=== PATIENT | female | born 1960 | race Caucasian/White ===

== ENCOUNTER → 2017-12-07 | Outpatient (CLI) | payer OTHER ==
[~2017-12-07] MED LIST: ALB18R INH; CALC-852 PO; CHOL100058 PO; CHOL400T55 PO; CLOB15OI16 TP; DULO60CA51 PO; ESTR42.5 PV; EXEN10PE6 SQ; EXEN5PEN SQ; GLUC100026 PO; LACT1CAP6 PO; LEVO75TA68 PO; LEVO88TA43 PO; LUTE20CA11 PO; MULT1TAB64 PO; OMEG-11 PO; PRAS25CA7 PO; PREG25PO9 PO; SERT-1 PO; VITA-197 PO; [UNRECOGNIZED DRUG - CODE] ASDIRECTED; [UNRECOGNIZED DRUG - CODE] PO; [UNRECOGNIZED DRUG - CODE] SQ
--- NOTE | 2017-12-08 13:48 | RADIOLOGY IMAGING REPORT ---
FACILITY: [facility] - [place] PATIENT NAME: MAISHA GALLOWAY : [id number] MR: [id number] V: [id number] EXAM DATE: ORDERING PHYSICIAN: MIKAL REDDING TECHNOLOGIST: Concepción Meneses PROCEDURE:BILATERAL DIGITAL SCREENING MAMMOGRAM WITH CAD ASSISTED INTERPRETATION & 3D TOMOSYNTHESIS COMPARISON:09/17/15 & priors dating back to 06/13/11 INDICATIONS:SCREENING FINDINGS: Breasts have scattered fibroglandular densities. There is a stable asymmetry in the posterior upper outer aspect of the left breast. There are no mammographic findings concerning for malignancy. There is no significant interval change. DIAGNOSTIC CATEGORY 1--NEGATIVE. RECOMMENDATIONS: ROUTINE MAMMOGRAM AND CLINICAL EVALUATION IN 1 YR. IMPRESSION: BIRADS 1: Negative. Dictated by: Clovis Mueller on 12/08/2017 at 8:58 Transcribed by: DUKE on 12/08/2017 at 11:33 Approved by: Clovis Mueller on 12/08/2017 at 13:46 [facility]
== END ==
LOC: MAMO 00:46
PROVIDERS: ATTEND Obstetrics & Gynecology
DX: Z12.31 Encounter for screening mammogram for malignant neoplasm of breast (principal)
CPT/HCPCS: 77063; 77067

== ENCOUNTER 2018-07-04 00:29 | Day surgery (SDC) | payer OTHER ==
[2018-07-04] VITALS (8 sets, daily range): BP systolic 89–130; BP diastolic 59–73
[~2018-07-04] VITALS: Ht 167.6 cm; Wt 81.6 kg
[2018-07-04] MEDS ORDERED: PROPOFOL EMUL(*) 10MG/ML 20 ML 20 ML ONE (07:07)
[2018-07-04] MEDS ORDERED: LIDOCAINE/SOD BICARB 8.4% SYR ONE (07:08)
[2018-07-04] MEDS ORDERED: LIDOCAINE/SOD BICARB 8.4% SYR ID ONE (07:50)
[2018-07-04] MEDS ORDERED: NORMOSOL R SOLN(*) 1000 ML BAG 1,000 ML IV PRN (07:50)
--- NOTE | 2018-07-04 09:04 | Short(Outpt) Discharge Summary ---
Discharge Summary Reason for Hosp/Final Diag: (1) Colon cancer screening Status: Chronic Hospital Course & Plan: Colonoscopy completed without problems; normal. Departure Discharge to: Home, Self Care Discharge Instructions Home Meds Active Scripts Levothyroxine Sodium (SYNTHROID) 88 Mcg Tablet, 1 TAB PO QDAY, #90 TAB 1 Refill Prov:JULIO CESAR ZAVALA MD 05/03/18 [place], Insulin Disposable (Bd Ultra-Fine Pen Needle) 1 Each Dis.needle, EACH SQ BID, #200 3 Refills Prov:JULIO CESAR ZAVALA MD 02/27/18 Exenatide (BYETTA) 10 Mcg/0.04 Ml Pen.injctr, 10 MCG SQ BID, #60 SYR 5 Refills Prov:JULIO CESAR ZAVALA MD 02/20/18 Reported Medications Flaxton-3 Fatty Acids/Fish Oil (FISH OIL 1,000 MG CAPSULE) 1 Each Capsule, 2 CAP PO QDAY, CAPSULE 08/01/17 Cholecalciferol (Vitamin D3) (VITAMIN D) 1,000 Unit Capsule, 1 CAP PO QDAY, CAPSULE 08/01/17 Clobetasol Propionate (CLOBETASOL PROPIONATE) 15 Gm Oint...g., 1 DESHAWN TP 2XW, TUBE 08/01/17 Vitamin E Mixed (VITAMIN E) 400 Unit Capsule, 1 CAP PO QDAY, CAPSULE 08/01/17 Estrogens, Conjugated (Premarin) 0.625 Mg/Gram Cream.appl, 0.5 GM PV 2XW 08/01/17 Multivitamin (MULTI VITAMIN DAILY) 1 Each Tablet, 1 TAB PO QDAY, TAB 08/01/17 Lutein (LUTEIN) 20 Mg Capsule, 1 CAP PO QDAY, CAPSULE 08/01/17 Glucosamine Sulfate 2KCL (GLUCOSAMINE) 1,000 Mg Tablet, 2 TAB PO QDAY 08/01/17 Calcium Carbonate/Vitamin D3 (CALCIUM + VITAMIN D TABLET) 1 Each Tablet, 1 TAB PO QDAY 08/01/17 Discontinued Scripts Sertraline Hcl (ZOLOFT) 50 Mg Tablet, 1 TAB PO QDAY, #90 TAB 3 Refills Prov:JULIO CESAR ZAVALA MD 11/22/17 Diet: Regular Activity: As Tolerated Special Instructions: Your colonoscopy was completed without any problems and your prep was excellent (Good Job!!). I didn't find any polyps, cancers, or other problems; it was completely normal. I recommend that you have another colonoscopy in 10 years. ALBAN NATHAN MD Jul 04, 2018 09:04
== END 2018-07-04 10:30 | disposition home or self-care (01) ==
LOC: OR 00:29
PROVIDERS: ATTEND Surgery
DX: Z12.11 Encounter for screening for malignant neoplasm of colon (principal); E66.9 Obesity, unspecified; K21.9 Gastro-esophageal reflux disease without esophagitis
CPT/HCPCS: 00812; 36416; 45378; 82948; J2704

== ENCOUNTER → 2019-01-18 | Outpatient (CLI) | payer OTHER ==
--- NOTE | 2019-01-18 11:52 | RADIOLOGY IMAGING REPORT ---
FACILITY: PATIENT NAME: Zandra Chambers : 1960 MR: [id number] V: [id number] EXAM DATE: ORDERING PHYSICIAN: JULIO CESAR ZAVALA TECHNOLOGIST: Location: [facility] - [place] Patient: Zandra Chambers : 1960 Visit/Account:[id number] Date of Sevice: 01/18/2019 DEXA Scan Clinical history: Osteoporosis screening. Comparison: 03/09/2009. LUMBAR SPINE: Bone mineral density (BMD) measured in the lumbar spine correlates with a T-score of -0.8 and a Z-sco re of -0.1 which is normal as defined by the World Health Organization. The corresponding risk of f racture in the lumbar spine is not increased compared with a young adult reference population. Lumb ar spine bone density has increased by 5.2% compared to previous. Note that degenerative changes may falsely increase bone density. LEFT FEMORAL NECK: Bone mineral density (BMD) measured in the femoral neck correlates with a T-score of -1.2 and a Z-sco re of -0.3 which is osteopenia as defined by the World Health Organization. Bone mineral density (BMD) measured in the femoral neck region is 0.866 g/cm2. LEFT TOTAL HIP: Total hip bone mineral density (BMD) correlates with a T-score of -0.7 and a Z-score of -0.2 which is normal as defined by the World Health Organization. Total hip bone density has decreased by less th an 1% compared to previous. The corresponding risk of fracture in the hip is increased compared with a young adult reference popu [facility]. IMPRESSION: 1. Lumbar spine: Normal bone density. Lumbar spine bone density has increased by 5.2% compared to previous. 2. Left femoral neck: Osteopenia. 3. Left femoral neck: Bone Mineral Density is 0.866 g/cm2. 4. Left total hip: Normal bone density. Total hip bone density has decreased by less than 1% martin red to previous. FRAX WHO Fracture Risk Assessment Tool link: <http://www.shef.ac.uk/FRAX/tool.jsp?locationValue=9> PLEASE NOTE: 1) The World Health Organization defines low BMD as follows: T-score Normal > -1 Osteopenia < -1 and > -2.5 Osteoporosis < -2.5 without fractures Established osteoporosis < -2.5 with fractures 2) In general, you may wish to consider: Diagnosis Treatment Follow-up DEXA Normal BMD Prevention 2-3 years Osteopenia Prevention/therapy 1-2 years Osteoporosis Therapy Yearly 3) Fracture risk estimated from the T-score is more accurate for vertebral fractures (often spontane ous) than for hip fractures. Report Dictated By: Hoang Jensen MD at 01/18/2019 11:44 AM Report E-Signed By: Hoang Jensen MD at 01/18/2019 11:48 AM WSN:DEON
--- NOTE | 2019-01-22 12:51 | RADIOLOGY IMAGING REPORT ---
[place] [facility] [place] MAISHA GALLOWAY : [id number] MR: [id number] V: [id number] EXAM DATE: [id number] ORDERING PHYSICIAN: MIKAL REDDING TECHNOLOGIST: Barbra Florence PROCEDURE:BILATERAL DIGITAL SCREENING MAMMOGRAM WITH CAD ASSISTED INTERPRETATION & 3D TOMOSYNTHESIS COMPARISON:[facility]. INDICATIONS:Screening FINDINGS: Scattered fibroglandular densities are present in both breasts. An asymmetry in the upper outer aspect of the Left breast is unchanged. A small benign appearing mass is present in the upper outer aspect of the Right breast, unchanged. DIAGNOSTIC CATEGORY 1--NEGATIVE. RECOMMENDATIONS: ROUTINE MAMMOGRAM AND CLINICAL EVALUATION IN 1 YR. IMPRESSION: BIRADS 1: Negative. Dictated by: Hoang Jensen M.D. on 01/18/2019 at 17:06 Transcribed by: OLIVIA on 01/21/2019 at 10:12 Approved by: Julius Bernard M.D. on 01/22/2019 at 12:50 [facility]
== END ==
LOC: MAMO 01:20
PROVIDERS: ATTEND Obstetrics & Gynecology
DX: Z13.820 Encounter for screening for osteoporosis (principal); Z12.31 Encounter for screening mammogram for malignant neoplasm of breast; M85.852 Other specified disorders of bone density and structure, left thigh; N63.11 Unspecified lump in the right breast, upper outer quadrant
CPT/HCPCS: 77063; 77067; 77080